=== PATIENT | female | born 1950 | race Caucasian/White ===

== ENCOUNTER 2018-11-06 16:03 | Emergency (ER) | payer OTHER, BC | END 2018-11-06 20:59 | disposition home or self-care (01) | LOC: JER 16:03 ==

== ENCOUNTER 2024-09-12 08:37 | Day surgery (SDC) | payer OTHER ==
[2024-09-07 13:20] VITALS: BMI 28.5
[2024-09-12 09:04] VITALS: TEMP 97.6
[2024-09-12 10:33] VITALS: BP 122/83; PULSE 75; RESP 16
== END 2024-09-12 10:30 | disposition home or self-care (01) ==
LOC: FASU-ENDO 08:37
PROVIDERS: ATTEND Internal Medicine Gastroenterology
PROC: 0DB78ZX Excision of Stomach, Pylorus, Via Natural or Artificial Opening Endoscopic, Diagnostic (ICD-10-PCS; 2024-09-12)
PROC: 0DB68ZX Excision of Stomach, Via Natural or Artificial Opening Endoscopic, Diagnostic (ICD-10-PCS; 2024-09-12)
PROC: 0DB98ZX Excision of Duodenum, Via Natural or Artificial Opening Endoscopic, Diagnostic (ICD-10-PCS; principal; 2024-09-12 09:41)
DX: K31.7 Polyp of stomach and duodenum (principal); K29.50 Unspecified chronic gastritis without bleeding; K44.9 Diaphragmatic hernia without obstruction or gangrene
CPT/HCPCS: 88305-TC; 88342-TC